=== PATIENT | male | born 1975 | race Caucasian/White ===

== ENCOUNTER 2016-08-09 11:44 | Emergency (ER) | payer MEDICARE, MEDICAID ==
--- NOTE | 2016-08-09 13:26 | EDM.PDOC ---
ED HPI GENERAL MEDICAL PROBLEM - General Chief Complaint: General Stated Complaint: DIZZY Time Seen by Provider: 08/09/16 13:07 Source of Information: Reports: Patient History Limitations: Reports: No Limitations - History of Present Illness INITIAL COMMENTS - FREE TEXT/NARRATIVE: 40 yo male presents to ER fro dizziness. This AM he woke feeling normal. Took his medications and Aleve. While showering before work he had a brief dizziness episode. While he was at work he became dizzy. He has been having low blood pressure and his BP medication was decreased by half less then 1 month ago per pt. He feels fine while laying in bed but dizzy when he sits up. c/o joint pain. Denies headache, nausea, vomitting or general ill feeling. He has been eating and drinking fine. Denies diarrhea, black or bloody stools, dysuria or constipation. Pt playing on phone while laying on bed appears comfortable Generalized Pain Score (Numeric/FACES): 8 - Related Data Allergies Allergy/AdvReac Type Severity Reaction Status Date / Time No Known Allergies Allergy Verified 08/09/16 12:48 Home Meds: Home Meds Eszopiclone [Lunesta] 3 mg PO BEDTIME 08/08/13 [History] Gabapentin 800 mg PO BEDTIME 08/08/13 [History] Losartan [Cozaar] 50 mg PO DAILY 08/08/13 [History] Clopidogrel Bisulfate [Clopidogrel] 75 mg PO DAILY 08/21/14 [History] Spironolactone [Aldactone] 12.5 mg PO DAILY 08/21/14 [History] atorvaSTATin [Lipitor] 40 mg PO BEDTIME 08/21/14 [History] Metoprolol Succinate [Toprol XL] 100 mg PO DAILY 01/03/15 [History] Acetaminophen [Tylenol] 650 mg PO Q6H PRN #100 cup 01/29/15 [Rx] Magnesium Hydroxide [Milk of Magnesia] 30 ml PO DAILY PRN #2 ml 01/29/15 [Rx] Calcium Carb/Vitamin D3/Vit K1 [Calcium + Vit D & K Chew] 1 tab PO BID 04/05/15 [History] Vitamin B Complex/Folic Acid [Sm Vitamin B Complex Tablet] 1 tab PO DAILY [History] Iron,Carbonyl/Ascorbic Acid [Iron 100-Vitamin C Tablet] 1 each PO BID 10/25/15 [ History] Pantoprazole [ProTONIX] 40 mg PO BIDAC #60 tab.cr 01/02/16 [Rx] Cyanocobalamin (Vitamin B-12) [Vitamin B-12] 1,000 mcg PO DAILY 08/09/16 [ History] Sacubitril/Valsartan [Entresto 49 mg-51 mg Tablet] 1 tab PO BID 08/09/16 [ History] Past Medical History HEENT History: Reports: Impaired Vision Cardiovascular History: Reports: Automatic Implantable Cardioverter Defibrillators, Hypertension, [place] Other Cardiovascular History: has defibrilator Respiratory History: Reports: Sleep Apnea Gastrointestinal History: Reports: Other (See Below) Other Gastrointestinal History: stomache ulcer Musculoskeletal History: Reports: Arthritis, Fracture, Other (See Below) Other Musculoskeletal History: right knee pain, right knee fracture, right ankle fracture, wrist fracture Neurological History: Reports: Concussion, Migraines, Other (See Below) Other Neuro History: brain encephlolitis Psychiatric History: Reports: Depression Endocrine/Metabolic History: Reports: Obesity/BMI 30+ Hematologic History: Reports: Other (See Below) Other Hematologic History: essential thrombocytopenia Dermatologic History: Reports: Psoriasis Other Dermatologic History: psoriatic arthritis - Infectious Disease History Infectious Disease History: Reports: Chicken Pox - Past Surgical History Cardiovascular Surgical History: Reports: Coronary Artery Stent Respiratory Surgical History: Reports: Tracheostomy, Other (See Below) GI Surgical History: Reports: Bariatric Procedure, Cholecystectomy, Colonoscopy Musculoskeletal Surgical History: Reports: Knee Replacement, Other (See Below) Social & Family History - Tobacco Use Smoking Status *Q: Current Every Day Smoker Years of Tobacco use: 35 Packs/Tins Daily: 1 Used Tobacco, but Quit: No Month Tobacco Last Used: March Second Hand Smoke Exposure: Yes - Caffeine Use Caffeine Use: Reports: Coffee, Soda Caffeine Use Comment: 1 cup coffee per day, one soda every 3 days - Alcohol Use Days Per Week of Alcohol Use: 1 Number of Drinks Per Day: 1 Total Drinks Per Week: 1 - Recreational Drug Use Recreational Drug Use: No Drug Use in Last 12 Months: No ED ROS GENERAL - Review of Systems Review Of Systems: See Below Constitutional: Denies: Fever, Chills, Fatigue HEENT: Denies: Rhinitis, Sinus Problem, Throat Pain Respiratory: Denies: Shortness of Breath, Wheezing Cardiovascular: Denies: Chest Pain GI/Abdominal: Denies: Abdominal Pain, Black Stool, Bloody Stool, Diarrhea, Nausea, Vomiting Musculoskeletal: Reports: Joint Pain Skin: Denies: Rash Neurological: Reports: Dizziness. Denies: Headache ED EXAM, GENERAL - Physical Exam Exam: See Below Exam Limited By: No Limitations General Appearance: Alert, WD/WN, No Apparent Distress Eye Exam: Bilateral Eye: PERRL Ears: Normal External Exam Head: Atraumatic, Normocephalic Neck: Normal Inspection, Supple, Non-Tender, Full Range of Motion. No: Lymphadenopathy (R), Lymphadenopathy (L) Respiratory/Chest: No Respiratory Distress, Lungs Clear, Normal Breath Sounds. No: Crackles, Rhonchi, Wheezing Cardiovascular: Regular Rate, Rhythm GI/Abdominal: Normal Bowel Sounds, Soft, Non-Tender, No Organomegaly Back Exam: Normal Inspection, Full Range of Motion. No: CVA Tenderness (R), CVA Tenderness (L) Extremities: Normal Inspection, Normal Range of Motion, Non-Tender, No Pedal Edema Neurological: Alert, Oriented, CN II-XII Intact, Normal Cognition Psychiatric: Normal Affect, Normal Mood Skin Exam: Warm, Dry, Intact, No Rash Lymphatic: No Adenopathy Course - Vital Signs Last Recorded V/S: Last Vital Signs Temp 36.1 C 08/09/16 13:06 Pulse 84 08/09/16 16:06 Resp 16 08/09/16 16:06 BP 120/69 08/09/16 16:06 Pulse Ox 98 08/09/16 16:06 - Orders/Labs/Meds Labs: Laboratory Tests 08/09/16 08/09/16 08/09/16 Range/Units 13:32 13:32 15:21 WBC 23.4 H (4.5-11.0) K/uL RBC 4.78 (4.30-5.90) M/uL Hgb 13.1 D (12.0-15.0) g/dL Hct 40.2 (40.0-54.0) % MCV 84 (80-98) fL MCH 27 (27-31) pg MCHC 33 (32-36) % Plt Count 365 (150-400) K/uL Neut % (Auto) 90 H (36-66) % Lymph % (Auto) 4 L (24-44) % Lynn % (Auto) 6 (2-6) % Eos % (Auto) 0 L (2-4) % Baso % (Auto) 0 (0-1) % Sodium 142 (140-148) mmol/L Potassium 4.4 (3.6-5.2) mmol/L Chloride 105 (100-108) mmol/L Carbon Dioxide 25 (21-32) mmol/L Anion Gap 12.5 (5.0-14.0) mmol/L BUN 26 H D (7-18) mg/dL Creatinine 1.1 D (0.8-1.3) mg/dL Est Cr Clr Drug Dosing 84.64 mL/min Estimated GFR (MDRD) > 60 (>60) Glucose 242 H (74-106) mg/dL Calcium 8.5 (8.5-10.1) mg/dL Total Bilirubin 1.1 H (0.2-1.0) mg/dL AST 16 D (15-37) U/L ALT 12 (12-78) U/L Alkaline Phosphatase 85 (46-116) U/L Total Protein 8.0 (6.4-8.2) g/dL Albumin 3.5 (3.4-5.0) g/dL Globulin 4.5 H (2.3-3.5) g/dL Albumin/Globulin Ratio 0.8 L (1.2-2.2) Urine Color Yellow Urine Appearance Clear Urine pH 5.0 (4.5-8.0) Ur Specific Boring 1.020 (1.008-1.030) Urine Protein Negative (NEGATIVE) mg/dL Urine Glucose (UA) 250 H (NEGATIVE) mg/dL Urine Ketones Negative (NEGATIVE) mg/dL Urine Occult Blood Moderate (NEGATIVE) Urine Nitrite Negative (NEGAITVE) Urine Bilirubin Negative (NEGATIVE) Urine Urobilinogen 1 (NORMAL) mg/dL Ur Leukocyte Esterase Negative (NEGATIVE) Urine RBC 40-50 H (0-5) Urine WBC 0-5 (0-5) Ur Epithelial Cells Rare Amorphous Sediment Few Urine Bacteria Moderate Urine Mucus Few Meds: Medications Discontinued Medications Generic Name Dose Route Start Last Admin Trade Name Freq PRN Reason Stop Dose Admin Sodium Chloride 1,000 mls @ 999 mls/hr 08/09/16 13:30 08/09/16 13:50 Normal Saline IV 999 mls/hr ASDIRECTED [facility] Administration Sodium Chloride 1,000 mls @ 999 mls/hr 08/09/16 15:00 08/09/16 15:01 Normal Saline IV 999 mls/hr ASDIRECTED [facility] Administration - Re-Assessments/Exams Free Text/Narrative Re-Assessment/Exam: 08/09/16 15:41 pt feeling much better after fluids. Dizziness resolved. UA glucose and moderate bacteria with RBCs but no WBCs in urine. Pt states that prior to gastric bipass he was diabetic. Today he has blood glucose of 242 that with glucose in urine he will need evaluation for DM II. pt understands this and will make appt for Thursday for reevaluation of UTI and elevated WBC plus DM II evaluation. I would also like him to hold his metoprolol until he is evaluated by his primary care doctor and monitor his blood pressure daily bringing these readings to PCP 08/09/16 15:46 08/09/16 17:28 pt ambulated without dizziness stated that he was ready to go home Departure - Departure Time of Disposition: 15:47 Disposition: Home, Self-Care 01 Condition: good Clinical Impression: Dizziness Hypotension Qualifiers: Hypotension type: unspecified hypotension type Qualified Code(s): I95.9 - Hypotension, unspecified UTI (urinary tract infection) Qualifiers: Urinary tract infection type: acute cystitis Hematuria presence: with hematuria Qualified Code(s): N30.01 - Acute cystitis with hematuria - Discharge Information Instructions: Hypotension, [id number], Urinary Tract Infection, Adult, Dizziness, [id number] Referrals: Kurtis Ya MD [Primary Care Provider] - Forms: ED Department Discharge Additional Instructions: You need to follow-up with your primary care provider Thursday Bactrim DS twice daily for 3 days for urinary tract infection You had glucose in your urine and your blood glucose today was 242 you will need to be evaluated by your primary care provider regarding return of your Diabetes Your white blood cells were also elevated today. please have your primary care doctor re-evaluate this increase increase fluid intake with goal of 1.5 liters per day
[2016-08-09] MEDS ORDERED: Sodium Chloride 0.9% 1,000 ML IV SCH ×2 (13:30→15:00)
[2016-08-09 16:07] VITALS: BP 120/69
== END 2016-08-09 16:31 | disposition home or self-care (01) ==
LOC: JP.ED 11:44
DX: R42 Dizziness and giddiness (principal); I95.9 Hypotension, unspecified; N30.01 Acute cystitis with hematuria; I10 Essential (primary) hypertension; I25.2 Old myocardial infarction; F32.9 Major depressive disorder, single episode, unspecified; F17.210 Nicotine dependence, cigarettes, uncomplicated; E66.9 Obesity, unspecified; Z68.28 Body mass index [BMI] 28.0-28.9, adult; Z95.810 Presence of automatic (implantable) cardiac defibrillator; Z95.5 Presence of coronary angioplasty implant and graft; Z90.49 Acquired absence of other specified parts of digestive tract; Z98.84 Bariatric surgery status; Z96.659 Presence of unspecified artificial knee joint; Z79.02 Long term (current) use of antithrombotics/antiplatelets; Z79.899 Other long term (current) drug therapy
CPT/HCPCS: 36415; 80053; 81001; 85025; 96360; 96361; 99284; J7040; 99283

== ENCOUNTER 2016-11-04 23:10 | Emergency (ER) | payer MEDICARE, MEDICAID ==
[2016-11-04 23:45] VITALS: BP 131/52
--- NOTE | 2016-11-05 00:26 | EDM.PDOC ---
ED HPI GENERAL MEDICAL PROBLEM - General Chief Complaint: Lower Extremity Injury/Pain Stated Complaint: L LEG PAIN Time Seen by Provider: 11/04/16 23:12 Source of Information: Reports: Patient History Limitations: Reports: No Limitations - History of Present Illness INITIAL COMMENTS - FREE TEXT/NARRATIVE: This gentleman had a total knee replacement about 2 weeks ago. Tonight he notices some red areas to his left lower leg. He's worried about a DVT. He denies any increasing pain. - Related Data Allergies Allergy/AdvReac Type Severity Reaction Status Date / Time No Known Allergies Allergy Verified 11/04/16 23:54 Home Meds: Home Meds Eszopiclone [Lunesta] 3 mg PO BEDTIME 08/08/13 [History] Gabapentin 800 mg PO BEDTIME 08/08/13 [History] Losartan [Cozaar] 50 mg PO DAILY 08/08/13 [History] Clopidogrel Bisulfate [Clopidogrel] 75 mg PO DAILY 08/21/14 [History] Spironolactone [Aldactone] 12.5 mg PO DAILY 08/21/14 [History] atorvaSTATin [Lipitor] 40 mg PO BEDTIME 08/21/14 [History] Metoprolol Succinate [Toprol XL] 100 mg PO DAILY 01/03/15 [History] Calcium Carb/Vitamin D3/Vit K1 [Calcium + Vit D & K Chew] 1 tab PO BID 04/05/15 [History] Vitamin B Complex/Folic Acid [Sm Vitamin B Complex Tablet] 1 tab PO DAILY [History] Iron,Carbonyl/Ascorbic Acid [Iron 100-Vitamin C Tablet] 1 each PO BID 10/25/15 [ History] Cyanocobalamin (Vitamin B-12) [Vitamin B-12] 1,000 mcg PO DAILY 08/09/16 [ History] Sacubitril/Valsartan [Entresto 49 mg-51 mg Tablet] 1 tab PO BID 08/09/16 [ History] Pantoprazole [ProTONIX] 40 mg PO DAILY 11/05/16 [History] oxyCODONE 5 - 10 mg PO Q4H PRN 11/05/16 [History] Past Medical History HEENT History: Reports: Impaired Vision Cardiovascular History: Reports: Automatic Implantable Cardioverter Defibrillators, Hypertension, [place] Other Cardiovascular History: has defibrilator Respiratory History: Reports: Sleep Apnea Gastrointestinal History: Reports: GI Bleed, Other (See Below) Other Gastrointestinal History: stomache ulcer Musculoskeletal History: Reports: Arthritis, Fracture, Other (See Below) Other Musculoskeletal History: right knee pain, right knee fracture, right ankle fracture, wrist fracture Neurological History: Reports: Concussion, Migraines, Other (See Below) Other Neuro History: brain encephalitis Psychiatric History: Reports: Depression Endocrine/Metabolic History: Reports: Obesity/BMI 30+ Hematologic History: Reports: Other (See Below) Other Hematologic History: essential thrombocytopenia Dermatologic History: Reports: Psoriasis Other Dermatologic History: psoriatic arthritis - Infectious Disease History Infectious Disease History: Reports: Chicken Pox - Past Surgical History Cardiovascular Surgical History: Reports: Coronary Artery Stent Respiratory Surgical History: Reports: Tracheostomy, Other (See Below) GI Surgical History: Reports: Bariatric Procedure, Cholecystectomy, Colonoscopy Musculoskeletal Surgical History: Reports: Knee Replacement, Other (See Below) Other Musculoskeletal Surgeries/Procedures:: right knee replacement last year, left knee replacement 10/24 Social & Family History - Tobacco Use Smoking Status *Q: Current Every Day Smoker Years of Tobacco use: 20 Packs/Tins Daily: 1 Used Tobacco, but Quit: No Month Tobacco Last Used: March Second Hand Smoke Exposure: Yes - Caffeine Use Caffeine Use: Reports: Coffee Caffeine Use Comment: 1 cup coffee per day, one soda every 3 days - Alcohol Use Days Per Week of Alcohol Use: 1 Number of Drinks Per Day: 1 Total Drinks Per Week: 1 - Recreational Drug Use Recreational Drug Use: No Drug Use in Last 12 Months: No Review of Systems - Review of Systems Review Of Systems: ROS reveals no pertinent complaints other than HPI. ED EXAM, GENERAL - Physical Exam Exam: See Below Exam Limited By: No Limitations General Appearance: Alert, No Apparent Distress, Thin Extremities: Other (There seems to be a moderate amount of muscle wasting to the legs. There is a midline scar to the left knee from recent surgery. There is a moderate amount of swelling and tenderness to the left knee which he says is unchanged there is no erythema or increased warmth to the left knee. There is one area to the lateral side of the knee inferior to the patella that seems moderately tender but is not fluctuant. There is a slightly reddish area approximately 4 cm in diameter over the distal third of the tibia and a similar area to the posterior calf at about the same level those or not warm and the redness does not steph. There is a small amount of icteric looking skin in that area which looks like the remains of some old blood which I assume came from the knee. The red area indicates that he may have had a little bit of acute blood loss over the past few days. The muscle tissues of the lower leg are completely flaccid and nontender. So no evidence of a DVT or superficial thrombophlebitis) Course - Vital Signs Last Recorded V/S: Last Vital Signs Temp 36.6 C 11/05/16 00:05 Pulse 93 11/05/16 00:05 Resp 16 11/05/16 00:05 BP 131/52 L 11/05/16 00:05 Pulse Ox 97 11/05/16 00:05 Departure - Departure Time of Disposition: :23 Disposition: Home, Self-Care 01 Condition: Good Clinical Impression: Discoloration of skin of lower leg - Discharge Information Referrals: Kurtis Ya MD [Primary Care Provider] - Forms: ED Department Discharge Additional Instructions: There is no evidence of a deep venous thrombosis in your lower leg. The red is discoloration as well as the much larger area of yellow discoloration is most likely from a little bit of bleeding into the tissues in your knee which has worked its way downward due to gravity. This will go away gradually without any kind of treatment. If you start to develop a lot of swelling, pain and redness in the lower leg and that would more likely be a DVT and you should be evaluated right away. At this point you don't need to do anything special just go about your business and remain as active as your doctor recommends.
== END 2016-11-05 00:40 | disposition home or self-care (01) ==
LOC: JP.ED 23:10
DX: L98.9 Disorder of the skin and subcutaneous tissue, unspecified (principal); L53.9 Erythematous condition, unspecified; I10 Essential (primary) hypertension; I25.2 Old myocardial infarction; M19.90 Unspecified osteoarthritis, unspecified site; F32.9 Major depressive disorder, single episode, unspecified; F17.210 Nicotine dependence, cigarettes, uncomplicated; E66.9 Obesity, unspecified; Z68.27 Body mass index [BMI] 27.0-27.9, adult; Z95.5 Presence of coronary angioplasty implant and graft; Z98.84 Bariatric surgery status; Z90.49 Acquired absence of other specified parts of digestive tract; Z96.653 Presence of artificial knee joint, bilateral; Z79.02 Long term (current) use of antithrombotics/antiplatelets; Z79.899 Other long term (current) drug therapy
CPT/HCPCS: 99283; 99284

== ENCOUNTER 2016-11-13 03:43 | Emergency (ER) | payer MEDICARE, MEDICAID ==
[2016-11-13 03:48] VITALS: BP 108/66
[2016-11-13] MEDS ORDERED: HYDROmorphone 1 MG/ML Syringe IM ONE (04:15)
--- NOTE | 2016-11-13 04:22 | EDM.PDOC ---
ED HPI GENERAL MEDICAL PROBLEM - General Chief Complaint: Lower Extremity Injury/Pain Stated Complaint: MEDICAL [facility]IA [facility] Time Seen by Provider: 11/13/16 04:10 Source of Information: Reports: Patient, EMS, Old Records History Limitations: Reports: No Limitations - History of Present Illness INITIAL COMMENTS - FREE TEXT/NARRATIVE: 41 yo male arrives in the ER tonight via EMS after developing severe pain in the left knee on his way back from the bathroom tonight. 10/24/16 had a total knee replacement on that leg in [place], [place]. Uses a rodriguez to get around lately , not able to flex and extend like he was before the pain began tonight. Is not sure if his knee is any more swollen than usual at this time. Took oxycodone 5 mg at 0330h tonight without relief of his pain. Does not return to [place] for follow up for a few more months. Onset: Today Onset Date: 11/13/16 Onset Time: 03:00 Duration: Minutes:, Constant Location: Reports: Lower Extremity, Left Quality: Reports: Ache Severity: Severe Improves with: Reports: Rest Worsens with: Reports: Movement Context: Reports: Other (Recent knee replacement) Associated Symptoms: Reports: No Other Symptoms Treatments VETERINARY PATHOLOGIST: Reports: Other Medication(s) (oxycodone 5 mg) Left Knee Pain Score (Numeric/FACES): 9 - Related Data Allergies Allergy/AdvReac Type Severity Reaction Status Date / Time No Known Allergies Allergy Verified 11/04/16 23:54 Home Meds: Home Meds Eszopiclone [Lunesta] 3 mg PO BEDTIME 08/08/13 [History] Gabapentin 800 mg PO BEDTIME 08/08/13 [History] Losartan [Cozaar] 50 mg PO DAILY 08/08/13 [History] Clopidogrel Bisulfate [Clopidogrel] 75 mg PO DAILY 08/21/14 [History] Spironolactone [Aldactone] 12.5 mg PO DAILY 08/21/14 [History] atorvaSTATin [Lipitor] 40 mg PO BEDTIME 08/21/14 [History] Metoprolol Succinate [Toprol XL] 100 mg PO DAILY 01/03/15 [History] Calcium Carb/Vitamin D3/Vit K1 [Calcium + Vit D & K Chew] 1 tab PO BID 04/05/15 [History] Vitamin B Complex/Folic Acid [Sm Vitamin B Complex Tablet] 1 tab PO DAILY [History] Iron,Carbonyl/Ascorbic Acid [Iron 100-Vitamin C Tablet] 1 each PO BID 10/25/15 [ History] Cyanocobalamin (Vitamin B-12) [Vitamin B-12] 1,000 mcg PO DAILY 08/09/16 [ History] Pantoprazole [ProTONIX] 40 mg PO DAILY 11/05/16 [History] oxyCODONE 5 - 10 mg PO Q4H PRN 11/05/16 [History] Sacubitril/Valsartan [Entresto 49 mg-51 mg Tablet] 2 tab PO BID 11/13/16 [ History] Ustekinumab [Stelara] 1 ml SQ ASDIRECTED 11/13/16 [History] Past Medical History HEENT History: Reports: Impaired Vision Cardiovascular History: Reports: Automatic Implantable Cardioverter Defibrillators, Hypertension, [place] Other Cardiovascular History: has defibrilator Respiratory History: Reports: Sleep Apnea Gastrointestinal History: Reports: GI Bleed, Other (See Below) Other Gastrointestinal History: stomache ulcer Musculoskeletal History: Reports: Arthritis, Fracture, Other (See Below) Other Musculoskeletal History: right knee pain, right knee fracture, right ankle fracture, wrist fracture Neurological History: Reports: Concussion, Migraines, Other (See Below) Other Neuro History: brain encephalitis Psychiatric History: Reports: Depression Endocrine/Metabolic History: Reports: Obesity/BMI 30+ Hematologic History: Reports: Anemia, B12 Deficiency Other Hematologic History: essential thrombocytopenia Dermatologic History: Reports: Psoriasis Other Dermatologic History: psoriatic arthritis - Infectious Disease History Infectious Disease History: Reports: Chicken Pox - Past Surgical History Cardiovascular Surgical History: Reports: Coronary Artery Stent Respiratory Surgical History: Reports: Tracheostomy, Other (See Below) GI Surgical History: Reports: Bariatric Procedure, Cholecystectomy, Colonoscopy Musculoskeletal Surgical History: Reports: Knee Replacement, Other (See Below) Other Musculoskeletal Surgeries/Procedures:: right knee replacement last year, left knee replacement 10/24 Social & Family History - Tobacco Use Smoking Status *Q: Current Every Day Smoker Years of Tobacco use: 25 Packs/Tins Daily: 1 Used Tobacco, but Quit: No Month Tobacco Last Used: March Second Hand Smoke Exposure: Yes - Caffeine Use Caffeine Use: Reports: Coffee Caffeine Use Comment: 1 cup coffee per day, one soda every 3 days - Alcohol Use Days Per Week of Alcohol Use: 1 Number of Drinks Per Day: 1 Total Drinks Per Week: 1 - Recreational Drug Use Recreational Drug Use: No Drug Use in Last 12 Months: No Review of Systems - Review of Systems Review Of Systems: See Below Constitutional: Reports: No Symptoms Respiratory: Reports: No Symptoms Cardiovascular: Reports: No Symptoms GI/Abdominal: Reports: No Symptoms Genitourinary: Reports: No Symptoms Musculoskeletal: Reports: Joint Pain (L knee) Skin: Reports: No Symptoms Neurological: Reports: No Symptoms Psychiatric: Reports: No Symptoms ED EXAM, GENERAL - Physical Exam Exam: See Below Exam Limited By: No Limitations General Appearance: Alert, WD/WN, No Apparent Distress Extremities: Joint Swelling (L knee is swollen). No: Redness Neurological: Alert, Oriented, CN II-XII Intact, Normal Cognition, No Motor/ Sensory Deficits Psychiatric: Normal Affect, Normal Mood Skin Exam: Warm, Dry, Intact, Normal Color, Increased Warmth (L knee. ), Other ( Healing surgical scar present. ). No: Erythema Lymphatic: No Adenopathy Course - Vital Signs Last Recorded V/S: Last Vital Signs Temp 36.2 C 11/13/16 03:44 Pulse 94 11/13/16 03:44 Resp 16 11/13/16 03:44 BP 108/66 11/13/16 03:44 Pulse Ox - Orders/Labs/Meds Orders: Active Orders 24 hr Category Date Time Status Knee 3V Lt [CR] Stat Exams 11/13/16 04:15 Ordered CBC W/O DIFF,HEMOGRAM [HEME] Stat Lab 11/13/16 04:16 Ordered HYDROmorphone [Dilaudid] Med 11/13/16 04:15 Once 1 mg IM ONETIME ONE - Radiology Interpretation Free Text/Narrative:: L knee X-ray-no acute processes identified. Departure - Departure Time of Disposition: 05:10 Disposition: Home, Self-Care 01 Condition: Fair Clinical Impression: Knee pain, left Qualifiers: Chronicity: acute Qualified Code(s): M25.562 - Pain in left knee - Discharge Information Referrals: PCP,None [Primary Care Provider] - - My Orders Last 24 Hours: My Active Orders 11/13/16 04:15 Knee 3V Lt [CR] Stat HYDROmorphone [Dilaudid] 1 mg IM ONETIME ONE 11/13/16 04:16 CBC W/O DIFF,HEMOGRAM [HEME] Stat - Assessment/Plan Last 24 Hours: My Active Orders 11/13/16 04:15 Knee 3V Lt [CR] Stat HYDROmorphone [Dilaudid] 1 mg IM ONETIME ONE 11/13/16 04:16 CBC W/O DIFF,HEMOGRAM [HEME] Stat
--- NOTE | 2016-11-13 08:54 | CR ---
Knee 3V Lt HISTORY: Pain COMPARISON: None FINDINGS: Moderate joint effusion. No acute fracture or bony destructive process. Total knee arthropl asty change with excellent alignment. Impression: Moderate effusion.
== END 2016-11-13 06:03 | disposition home or self-care (01) ==
LOC: JP.ED 03:43
DX: M25.562 Pain in left knee (principal); I10 Essential (primary) hypertension; I25.2 Old myocardial infarction; M19.90 Unspecified osteoarthritis, unspecified site; F17.210 Nicotine dependence, cigarettes, uncomplicated; E66.9 Obesity, unspecified; Z68.27 Body mass index [BMI] 27.0-27.9, adult; Z95.810 Presence of automatic (implantable) cardiac defibrillator; Z95.5 Presence of coronary angioplasty implant and graft; Z98.84 Bariatric surgery status; Z90.49 Acquired absence of other specified parts of digestive tract; Z96.651 Presence of right artificial knee joint; Z98.890 Other specified postprocedural states; Z79.02 Long term (current) use of antithrombotics/antiplatelets; Z79.899 Other long term (current) drug therapy
CPT/HCPCS: 36415; 73562; 85027; 96372; 99284; J1170; 99283

== ENCOUNTER 2017-03-11 21:41 | Emergency (ER) | payer MEDICARE, MEDICAID ==
[2017-03-11 21:56] VITALS: BP 107/62
[2017-03-11] MEDS ORDERED: Acetaminophen 500 MG Tab PO ONE (22:23)
--- NOTE | 2017-03-11 22:25 | EDM.PDOC ---
ED HPI GENERAL MEDICAL PROBLEM - General Chief Complaint: Lower Extremity Injury/Pain Stated Complaint: RIGHT KNEE PAIN Time Seen by Provider: 03/11/17 22:23 Source of Information: Reports: Patient History Limitations: Reports: No Limitations - History of Present Illness INITIAL COMMENTS - FREE TEXT/NARRATIVE: This patient came in complaining of right knee pain. He's had bilateral total knee replacements. He denied any kind of trauma to the right knee. He thinks the pain is just caused by the very cold weather. He points to the medial side of the right knee. He hasn't taken anything for the pain he told me that he thought naproxen would help but that he couldn't take Aleve since she's had ulcers he wasn't aware they're both the same medication right knee Pain Score (Numeric/FACES): 10 - Related Data Allergies Allergy/AdvReac Type Severity Reaction Status Date / Time No Known Allergies Allergy Verified 03/11/17 21:54 Home Meds: Home Meds Eszopiclone [Lunesta] 3 mg PO BEDTIME 08/08/13 [History] Gabapentin 800 mg PO BEDTIME 08/08/13 [History] Losartan [Cozaar] 50 mg PO DAILY 08/08/13 [History] Clopidogrel Bisulfate [Clopidogrel] 75 mg PO DAILY 08/21/14 [History] Spironolactone [Aldactone] 12.5 mg PO DAILY 08/21/14 [History] atorvaSTATin [Lipitor] 40 mg PO BEDTIME 08/21/14 [History] Metoprolol Succinate [Toprol XL] 100 mg PO DAILY 01/03/15 [History] Calcium Carb/Vitamin D3/Vit K1 [Calcium + Vit D & K Chew] 1 tab PO BID 04/05/15 [History] Vitamin B Complex/Folic Acid [Sm Vitamin B Complex Tablet] 1 tab PO DAILY [History] Iron,Carbonyl/Ascorbic Acid [Iron 100-Vitamin C Tablet] 1 each PO DAILY [History] Cyanocobalamin (Vitamin B-12) [Vitamin B-12] 1,000 mcg PO DAILY 08/09/16 [ History] Pantoprazole [ProTONIX] 40 mg PO DAILY 11/05/16 [History] Sacubitril/Valsartan [Entresto 49 mg-51 mg Tablet] 2 tab PO BID 11/13/16 [ History] Past Medical History HEENT History: Reports: Impaired Vision Cardiovascular History: Reports: Automatic Implantable Cardioverter Defibrillators, High Cholesterol, Hypertension, [place], Stents Other Cardiovascular History: has defibrilator Respiratory History: Reports: Sleep Apnea, Other (See Below) Other Respiratory History: has not had issues with sleep apnea since gastric bypass surgery Gastrointestinal History: Reports: GI Bleed, Other (See Below) Other Gastrointestinal History: stomache ulcer Musculoskeletal History: Reports: Arthritis, Fracture, Other (See Below) Other Musculoskeletal History: right knee pain, right knee fracture, right ankle fracture, wrist fracture Neurological History: Reports: Concussion, Migraines, Other (See Below) Other Neuro History: brain encephalitis Psychiatric History: Reports: Depression, Suicide Attempt Endocrine/Metabolic History: Reports: Obesity/BMI 30+ Hematologic History: Reports: Anemia, B12 Deficiency Other Hematologic History: essential thrombocythemia Dermatologic History: Reports: Psoriasis Other Dermatologic History: psoriatic arthritis - Infectious Disease History Infectious Disease History: Reports: Other (See Below) Other Infectious Disease History: patient cannot remember - Past Surgical History Cardiovascular Surgical History: Reports: Coronary Artery Stent Respiratory Surgical History: Reports: Tracheostomy GI Surgical History: Reports: Bariatric Procedure, Cholecystectomy, Colonoscopy Musculoskeletal Surgical History: Reports: Knee Replacement, Other (See Below) Other Musculoskeletal Surgeries/Procedures:: right knee replacement 2016, left knee replacement 10/24/16 Social & Family History - Tobacco Use Smoking Status *Q: Current Every Day Smoker Years of Tobacco use: 30 Packs/Tins Daily: 1 Used Tobacco, but Quit: No Month Tobacco Last Used: March Second Hand Smoke Exposure: Yes - Caffeine Use Caffeine Use: Reports: Coffee Caffeine Use Comment: 1 cup coffee per day, one soda every 3 days - Alcohol Use Days Per Week of Alcohol Use: 1 Number of Drinks Per Day: 1 Total Drinks Per Week: 1 - Recreational Drug Use Recreational Drug Use: No Drug Use in Last 12 Months: No Review of Systems - Review of Systems Review Of Systems: ROS reveals no pertinent complaints other than HPI. ED EXAM, GENERAL - Physical Exam Exam: See Below Exam Limited By: No Limitations General Appearance: No Apparent Distress Extremities: Other (There are well-healed midline scars to both knees. The right knee has good active and passive range of motion. There is some point tenderness to the medial side of the right knee. It's at the area that would normally be the joint line. There is no swelling. There is nothing to suggest a DVT) Course - Vital Signs Last Recorded V/S: Last Vital Signs Temp 35.2 C 03/11/17 22:06 Pulse 88 03/11/17 22:06 Resp 16 03/11/17 22:06 BP 107/62 03/11/17 22:06 Pulse Ox 96 03/11/17 22:06 - Orders/Labs/Meds Meds: Medications Discontinued Medications Generic Name Dose Route Start Last Admin Trade Name Yecenia PRN Reason Stop Dose Admin Acetaminophen 1,000 mg 03/11/17 22:23 03/11/17 22:27 Tylenol Extra Strength PO 03/11/17 22:24 1,000 mg ONETIME ONE Administration Departure - Departure Time of Disposition: 22:23 Disposition: Home, Self-Care 01 Condition: Fair Clinical Impression: Right medial knee pain - Discharge Information Instructions: Knee Pain Referrals: Kurtis Ya MD [Primary Care Provider] - Forms: ED Department Discharge Additional Instructions: Take Tylenol or acetaminophen for pain. Follow package instructions regarding maximum dosage. If you're not better in a few days then follow-up with your primary care provider. You may need to see the orthopedic surgeon. Recommend you elevate your knee and apply ice off and on for the next day or so. Return to the ER at any time if needed
== END 2017-03-11 22:34 | disposition home or self-care (01) ==
LOC: JP.ED 21:41
DX: M25.561 Pain in right knee (principal); E78.00 Pure hypercholesterolemia, unspecified; I10 Essential (primary) hypertension; E66.9 Obesity, unspecified; F17.210 Nicotine dependence, cigarettes, uncomplicated; Z79.899 Other long term (current) drug therapy
CPT/HCPCS: 99283; A9270; 99282

== ENCOUNTER 2018-09-03 23:53 | Emergency (ER) | payer MEDICARE, MEDICAID ==
[2018-09-04 00:08] VITALS: BP 145/85
--- NOTE | 2018-09-04 00:21 | EDM.PDOC ---
ED HPI GENERAL MEDICAL PROBLEM - General Chief Complaint: Upper Extremity Injury/Pain Stated Complaint: LEFT ARM NUMBNESS, HEART ATTACK? Time Seen by Provider: 09/04/18 00:20 Source of Information: Reports: Patient, Old Records, RN History Limitations: Reports: No Limitations - History of Present Illness INITIAL COMMENTS - FREE TEXT/NARRATIVE: 42 yo male had onset about 3 hrs prior to arrival of L arm pain. Pain has worsened since onset. Is worried this is his heart. Has no nausea, diaphoresis or SOB. Recalls no overuse or injury to this area. Has not taken anything for pain. Does have a heart hx. Onset: Gradual Onset Date: 09/03/18 Duration: Hour(s): (3), Getting Worse Location: Reports: Upper Extremity, Left Quality: Reports: Ache Severity: Mild Improves with: Reports: Rest Worsens with: Reports: Movement Context: Reports: Other (unknown) Associated Symptoms: Reports: No Other Symptoms Treatments PA[employer] HELPER: Reports: Other (see below) (none) Left Upper Arm Pain Score (Numeric/FACES): 7 - Related Data Allergies Allergy/AdvReac Type Severity Reaction Status Date / Time No Known Allergies Allergy Verified 03/11/17 21:54 Home Meds: Home Meds Gabapentin 800 mg PO BEDTIME 08/08/13 [History] Losartan [Cozaar] 50 mg PO DAILY 08/08/13 [History] Clopidogrel Bisulfate [Clopidogrel] 75 mg PO DAILY 08/21/14 [History] Spironolactone [Aldactone] 12.5 mg PO DAILY 08/21/14 [History] atorvaSTATin [Lipitor] 40 mg PO BEDTIME 08/21/14 [History] Metoprolol Succinate [Toprol XL] 100 mg PO DAILY 01/03/15 [History] Calcium Carb/Vitamin D3/Vit K1 [Calcium + Vit D & K Chew] 1 tab PO BID 04/05/15 [History] Vitamin B Complex/Folic Acid [Sm Vitamin B Complex Tablet] 1 tab PO DAILY [History] Iron,Carbonyl/Ascorbic Acid [Iron 100-Vitamin C Tablet] 1 each PO DAILY [History] Cyanocobalamin (Vitamin B-12) [Vitamin B-12] 1,000 mcg PO DAILY 08/09/16 [ History] Pantoprazole [ProTONIX] 40 mg PO DAILY 11/05/16 [History] Sacubitril/Valsartan [Entresto 49 mg-51 mg Tablet] 2 tab PO BID 11/13/16 [ History] Past Medical History HEENT History: Reports: Impaired Vision Cardiovascular History: Reports: Automatic Implantable Cardioverter Defibrillators, High Cholesterol, Hypertension, [place], Stents Other Cardiovascular History: has defibrilator Respiratory History: Reports: Sleep Apnea, Other (See Below) Other Respiratory History: has not had issues with sleep apnea since gastric bypass surgery Gastrointestinal History: Reports: GI Bleed, Other (See Below) Other Gastrointestinal History: stomache ulcer Musculoskeletal History: Reports: Arthritis, Fracture, Other (See Below) Other Musculoskeletal History: right knee pain, right knee fracture, right ankle fracture, wrist fracture Neurological History: Reports: Concussion, Migraines, Other (See Below) Other Neuro History: brain encephalitis Psychiatric History: Reports: Depression, Suicide Attempt Endocrine/Metabolic History: Reports: Obesity/BMI 30+ Hematologic History: Reports: Anemia, B12 Deficiency Other Hematologic History: essential thrombocythemia Dermatologic History: Reports: Psoriasis Other Dermatologic History: psoriatic arthritis - Infectious Disease History Infectious Disease History: Reports: Other (See Below) Other Infectious Disease History: patient cannot remember - Past Surgical History Cardiovascular Surgical History: Reports: Coronary Artery Stent Respiratory Surgical History: Reports: Tracheostomy GI Surgical History: Reports: Bariatric Procedure, Cholecystectomy, Colonoscopy Musculoskeletal Surgical History: Reports: Knee Replacement, Other (See Below) Other Musculoskeletal Surgeries/Procedures:: right knee replacement 2016, left knee replacement 10/24/16 Social & Family History - Tobacco Use Smoking Status *Q: Current Every Day Smoker Years of Tobacco use: 25 Packs/Tins Daily: 1 - Caffeine Use Caffeine Use: Reports: Coffee Caffeine Use Comment: 1 cup coffee per day, one soda every 3 days - Recreational Drug Use Recreational Drug Use: No Review of Systems - Review of Systems Review Of Systems: See Below Constitutional: Reports: No Symptoms Respiratory: Reports: No Symptoms Cardiovascular: Reports: No Symptoms GI/Abdominal: Reports: No Symptoms Musculoskeletal: Reports: Shoulder Pain (left), Arm Pain (left) Skin: Reports: No Symptoms Neurological: Reports: Tingling (minimal of L hand) ED EXAM, GENERAL - Physical Exam Exam: See Below Exam Limited By: No Limitations General Appearance: Alert, WD/WN, No Apparent Distress Nose: Normal Inspection Throat/Mouth: Normal Voice, No Airway Compromise Head: Atraumatic, Normocephalic Neck: Normal Inspection Respiratory/Chest: No Respiratory Distress, Lungs Clear, Normal Breath Sounds, No Accessory Muscle Use Cardiovascular: Regular Rate, Rhythm, No Edema Extremities: Normal Inspection, Normal Range of Motion, No Pedal Edema, Arm Pain (L biceps area is tender. Resisted arm extension, however, does not make the pain worse. No redness, no sign of phlebitis. No axillary adenopathy or tenderness. Good peripheral pulse at the L wrist. ). No: Non-Tender, Joint Swelling, Limited Range of Motion, Increased Warmth, Redness Neurological: Alert, Oriented, CN II-XII Intact, Normal Cognition, No Motor/ Sensory Deficits Psychiatric: Normal Affect, Normal Mood Skin Exam: Warm, Dry, Intact, Normal Color, No Rash EKG INTERPRETATION EKG Date: 09/04/18 Time: 00:10 Rhythm: NSR Rate (Beats/Min): 83 [place]: Normal P-Wave: Present QRS: Normal ST-T: Normal QT: Normal Comparison: No Change EKG Interpretation Comments: PVC's not present on prior EKG, otherwise unchanged. Course - Vital Signs Last Recorded V/S: Last Vital Signs Temp 35.6 C 09/04/18 00:04 Pulse 89 09/04/18 00:04 Resp 16 09/04/18 00:04 BP 145/85 H 09/04/18 00:04 Pulse Ox 92 L 09/04/18 00:04 - Orders/Labs/Meds Orders: Active Orders 24 hr Category Date Time Status EKG Documentation Completion [RC] ASDIRECTED Care 09/04/18 00:12 Active Acetaminophen/HYDROcodone [[place] 325-5 MG] Med 09/04/18 00:26 Once 1 tab PO ONETIME ONE EKG 12 Lead [EK] Routine Ther 09/04/18 00:12 Ordered Medication Orders Hydrocodone Bitart/Acetaminophen ([place] 325-5 Mg) 1 tab PO ONETIME ONE Stop: 09/04/18 00:27 Meds: Medications Generic Name Dose Route Start Last Admin Trade Name Freq PRN Reason Stop Dose Admin Hydrocodone Bitart/Acetaminophen 1 tab 09/04/18 00:26 [place] 325-5 Mg PO 09/04/18 00:27 ONETIME ONE Departure - Departure Time of Disposition: 00:40 Disposition: Home, Self-Care 01 Condition: Good Clinical Impression: Arm pain, left - Discharge Information *PRESCRIPTION DRUG MONITORING PROGRAM REVIEWED*: No *COPY OF PRESCRIPTION DRUG MONITORING REPORT IN PATIENT MAMIE: No Referrals: Kurtis Ya MD [Primary Care Provider] - Forms: ED Department Discharge Additional Instructions: Take [place] 1-2 every 4-6 hrs as needed. Recheck Thursday with your provider if symptoms persist. Return if worse. - My Orders Last 24 Hours: My Active Orders 09/04/18 00:12 EKG Documentation Completion [RC] ASDIRECTED EKG 12 Lead [EK] Routine 09/04/18 00:26 Acetaminophen/HYDROcodone [[place] 325-5 MG] 1 tab PO ONETIME ONE - Assessment/Plan Last 24 Hours: My Active Orders 09/04/18 00:12 EKG Documentation Completion [RC] ASDIRECTED EKG 12 Lead [EK] Routine 09/04/18 00:26 Acetaminophen/HYDROcodone [[place] 325-5 MG] 1 tab PO ONETIME ONE
[2018-09-04] MEDS ORDERED: Acetaminophen/HYDROcodone 325-5 MG Tab PO ONE (00:26)
== END 2018-09-04 00:42 | disposition home or self-care (01) ==
LOC: JP.ED 23:53
DX: M79.622 Pain in left upper arm (principal); I10 Essential (primary) hypertension; I25.2 Old myocardial infarction; M19.90 Unspecified osteoarthritis, unspecified site; D64.9 Anemia, unspecified; E66.9 Obesity, unspecified; F17.210 Nicotine dependence, cigarettes, uncomplicated; Z98.84 Bariatric surgery status; Z79.899 Other long term (current) drug therapy; Z95.5 Presence of coronary angioplasty implant and graft; Z90.49 Acquired absence of other specified parts of digestive tract
CPT/HCPCS: 93005; 99284; A9270; 93010; 99283

== ENCOUNTER 2019-07-27 03:03 | Emergency (ER) | payer MEDICARE, MEDICAID ==
--- NOTE | 2019-07-27 03:25 | EDM.PDOC ---
ED HPI GENERAL MEDICAL PROBLEM - General Chief Complaint: Lower Extremity Injury/Pain Stated Complaint: ROLLED LEFT ANKLE Time Seen by Provider: 07/27/19 03:10 Source of Information: Reports: Patient History Limitations: Reports: No Limitations - History of Present Illness INITIAL COMMENTS - FREE TEXT/NARRATIVE: 43-year-old male rolled his foot earlier tonight. Tonight he was having difficulty sleeping because it hurts so bad. He has wrapped up and is able to walk but he has to limp pretty significantly. The pain is fairly localized to the lateral aspect of his foot. No other injury. Onset: Sudden Duration: Hour(s): (6 hours ago) Location: Reports: Lower Extremity, Left Associated Symptoms: Reports: No Other Symptoms Left Ankle Pain Score (Numeric/FACES): 6 - Related Data Allergies Allergy/AdvReac Type Severity Reaction Status Date / Time No Known Allergies Allergy Verified 07/27/19 03:15 Home Meds: Home Meds Gabapentin 800 mg PO BEDTIME 08/08/13 [History] Losartan [Cozaar] 50 mg PO DAILY 08/08/13 [History] Clopidogrel Bisulfate [Clopidogrel] 75 mg PO DAILY 08/21/14 [History] Spironolactone [Aldactone] 12.5 mg PO DAILY 08/21/14 [History] atorvaSTATin [Lipitor] 40 mg PO BEDTIME 08/21/14 [History] Metoprolol Succinate [Toprol XL] 100 mg PO DAILY 01/03/15 [History] Calcium Carb/Vitamin D3/Vit K1 [Calcium + Vit D & K Chew] 1 tab PO BID 04/05/15 [History] Vitamin B Complex/Folic Acid [Sm Vitamin B Complex Tablet] 1 tab PO DAILY [History] Iron,Carbonyl/Ascorbic Acid [Iron 100-Vitamin C Tablet] 1 each PO DAILY [History] Cyanocobalamin (Vitamin B-12) [Vitamin B-12] 1,000 mcg PO DAILY 08/09/16 [ History] Pantoprazole [ProTONIX] 40 mg PO DAILY 11/05/16 [History] Sacubitril/Valsartan [Entresto 49 mg-51 mg Tablet] 2 tab PO BID 11/13/16 [ History] Suvorexant [Belsomra] 10 mg PO BEDTIME 05/13/20 [History] Past Medical History HEENT History: Reports: Impaired Vision Cardiovascular History: Reports: Automatic Implantable Cardioverter Defibrillators, Heart Failure, High Cholesterol, Hypertension, [place], Stents Other Cardiovascular History: has defibrilator Respiratory History: Reports: Sleep Apnea, Other (See Below) Other Respiratory History: has not had issues with sleep apnea since gastric bypass surgery Gastrointestinal History: Reports: GI Bleed, Other (See Below) Other Gastrointestinal History: stomache ulcer Musculoskeletal History: Reports: Arthritis, Fracture, Other (See Below) Other Musculoskeletal History: right knee pain, right knee fracture, right ankle fracture, wrist fracture Neurological History: Reports: Concussion, Migraines, Other (See Below) Other Neuro History: brain encephalitis Psychiatric History: Reports: Depression, Suicide Attempt Endocrine/Metabolic History: Reports: Obesity/BMI 30+ Hematologic History: Reports: Anemia, B12 Deficiency Other Hematologic History: essential thrombocythemia Dermatologic History: Reports: Psoriasis Other Dermatologic History: psoriatic arthritis - Infectious Disease History Infectious Disease History: Reports: Other (See Below) Other Infectious Disease History: patient cannot remember - Past Surgical History Cardiovascular Surgical History: Reports: Coronary Artery Stent Respiratory Surgical History: Reports: Tracheostomy GI Surgical History: Reports: Bariatric Procedure, Cholecystectomy, Colonoscopy Musculoskeletal Surgical History: Reports: Knee Replacement, Other (See Below) Other Musculoskeletal Surgeries/Procedures:: right knee replacement 2016, left knee replacement 10/24/16 Social & Family History - Tobacco Use Smoking Status *Q: Current Every Day Smoker Years of Tobacco use: 30 Packs/Tins Daily: 1 - Caffeine Use Caffeine Use: Reports: Coffee Caffeine Use Comment: 1 cup coffee per day, one soda every 3 days Review of Systems - Review of Systems Review Of Systems: See Below Constitutional: Denies: Fever Respiratory: Denies: Shortness of Breath Cardiovascular: Denies: Chest Pain Skin: Reports: Bruising (Some slight bruising is developing over the lateral top of the foot) Neurological: Denies: Paresthesia Psychiatric: Reports: No Symptoms ED EXAM, GENERAL - Physical Exam Exam: See Below Exam Limited By: No Limitations General Appearance: Alert, No Apparent Distress Respiratory/Chest: No Respiratory Distress Extremities: Other (Exam is otherwise limited to the feet. There is no significant asymmetry. He is tender over the proximal aspect of the lateral fourth and fifth metatarsals with some slight bruising in the area.) Course - Vital Signs Last Recorded V/S: Last Vital Signs Temp 98.9 F 07/27/19 03:23 Pulse 92 07/27/19 03:23 Resp 18 07/27/19 03:23 BP 130/76 07/27/19 03:23 Pulse Ox 97 07/27/19 03:23 - Orders/Labs/Meds Meds: Medications Discontinued Medications Generic Name Dose Route Start Last Admin Trade Name Yecenia PRN Reason Stop Dose Admin Ibuprofen 600 mg 07/27/19 03:43 07/27/19 03:48 Motrin PO 07/27/19 03:44 600 mg ONETIME ONE Administration - Re-Assessments/Exams Free Text/Narrative Re-Assessment/Exam: 07/27/19 03:25 X-ray of the left foot was obtained. 07/27/19 03:44 X-ray was normal. Patient was given 600 mg of ibuprofen p.o., encouraged to continue wrapping his foot and increase activity as tolerated. Recheck in 5 to 7 days if not improving satisfactorily. Departure - Departure Time of Disposition: 03:49 Disposition: Home, Self-Care 01 Clinical Impression: Sprain of foot, left Qualifiers: Encounter type: initial encounter Qualified Code(s): S93.602A - Unspecified sprain of left foot, initial encounter - Discharge Information Instructions: Foot Sprain Referrals: Kurtis Ya MD [Primary Care Provider] - Forms: ED Department Discharge Care Plan Goals: Elevate when able, continue wrapping and increase activity as tolerated. Ibuprofen or Tylenol may be helpful. Recheck in 5 to 7 days if not improving satisfactorily. Sepsis Event Note - Evaluation Sepsis Screening Result: No Definite Risk - Focused Exam Date Exam was Performed: 07/27/19 Time Exam was Performed: 17:30
[2019-07-27 03:35] VITALS: BP 130/76; PULSE 92
[2019-07-27] MEDS ORDERED: Ibuprofen 600 MG Tab PO ONE (03:43)
--- NOTE | 2019-07-27 10:02 | CR ---
Foot Comp Min 3V Lt CLINICAL HISTORY: Lateral foot pain, injury FINDINGS: There is no acute fracture or dislocation within the foot. No destructive changes are present. There is some mild osteophytic change in the interphalangeal joints with some mild hammertoe deformity. There is mild deformity at the base of the second proximal phalanx which may be from old injury IMPRESSION: No acute bony process.
== END 2019-07-27 03:49 | disposition home or self-care (01) ==
LOC: JP.ED 03:03
DX: S93.602A Unspecified sprain of left foot, initial encounter (principal); E78.00 Pure hypercholesterolemia, unspecified; I11.0 Hypertensive heart disease with heart failure; I50.9 Heart failure, unspecified; I25.2 Old myocardial infarction; E66.9 Obesity, unspecified; Z68.37 Body mass index [BMI] 37.0-37.9, adult; Z79.02 Long term (current) use of antithrombotics/antiplatelets; Z79.899 Other long term (current) drug therapy; X50.9XXA Other and unspecified overexertion or strenuous movements or postures, initial encounter
CPT/HCPCS: 73630-26-LT; 73630-LT; 99282; 99283-25; A9270-GY

== ENCOUNTER 2019-10-31 22:07 | Emergency (ER) | payer MEDICARE, MEDICAID ==
[2019-10-31] MEDS ORDERED: Diphtheria,Pertussis(Acell),Tetanus Vaccine 0.5 ML SDV IM ONE (22:23)
[2019-10-31 22:26] VITALS: BP 137/79; PULSE 86
--- NOTE | 2019-10-31 22:36 | EDM.PDOC ---
ED HPI GENERAL MEDICAL PROBLEM - General Chief Complaint: Laceration Stated Complaint: PUNCTURED LT FOOT Time Seen by Provider: 10/31/19 22:15 Source of Information: Reports: Patient History Limitations: Reports: No Limitations - History of Present Illness INITIAL COMMENTS - FREE TEXT/NARRATIVE: 44-year-old male was using an electric drill when it slipped out of his hand and fell onto the top of his foot puncturing a wound into the top of his left foot. This happened within the last hour but he continues to bleed so he wanted it checked. Some pain with walking but not significant. Onset: Sudden Duration: Hour(s): (About 1 hour ago) Location: Reports: Lower Extremity, Left Worsens with: Reports: Other (Weightbearing and walking causes some increased pain) Associated Symptoms: Reports: No Other Symptoms Left Foot Pain Score (Numeric/FACES): 4 - Related Data Allergies Allergy/AdvReac Type Severity Reaction Status Date / Time No Known Allergies Allergy Verified 10/31/19 22:18 Home Meds: Home Meds Gabapentin 800 mg PO BEDTIME 08/08/13 [History] Losartan [Cozaar] 50 mg PO DAILY 08/08/13 [History] Clopidogrel Bisulfate [Clopidogrel] 75 mg PO DAILY 08/21/14 [History] Spironolactone [Aldactone] 12.5 mg PO DAILY 08/21/14 [History] atorvaSTATin [Lipitor] 40 mg PO BEDTIME 08/21/14 [History] Metoprolol Succinate [Toprol XL] 100 mg PO DAILY 01/03/15 [History] Calcium Carb/Vitamin D3/Vit K1 [Calcium + Vit D & K Chew] 1 tab PO BID 04/05/15 [History] Vitamin B Complex/Folic Acid [Sm Vitamin B Complex Tablet] 1 tab PO DAILY 04/05/15 [History] Iron,Carbonyl/Ascorbic Acid [Iron 100-Vitamin C Tablet] 1 each PO DAILY 10/25/15 [History] Cyanocobalamin (Vitamin B-12) [Vitamin B-12] 1,000 mcg PO DAILY 08/09/16 [History] Pantoprazole [ProTONIX] 40 mg PO DAILY 11/05/16 [History] Sacubitril/Valsartan [Entresto 49 mg-51 mg Tablet] 2 tab PO BID 11/13/16 [History] Suvorexant [Belsomra] 10 mg PO BEDTIME 07/27/19 [History] Eszopiclone [Lunesta] 3 mg PO BEDTIME 10/31/19 [History] Past Medical History HEENT History: Reports: Impaired Vision Cardiovascular History: Reports: Automatic Implantable Cardioverter Defibrillators, Heart Failure, High Cholesterol, Hypertension, [place], Stents Other Cardiovascular History: has defibrilator Respiratory History: Reports: Sleep Apnea, Other (See Below) Other Respiratory History: has not had issues with sleep apnea since gastric bypass surgery Gastrointestinal History: Reports: GI Bleed, Other (See Below) Other Gastrointestinal History: stomache ulcer Musculoskeletal History: Reports: Arthritis, Fracture, Other (See Below) Other Musculoskeletal History: right knee pain, right knee fracture, right ankle fracture, wrist fracture Neurological History: Reports: Concussion, Migraines, Other (See Below) Other Neuro History: brain encephalitis Psychiatric History: Reports: Depression, Suicide Attempt Endocrine/Metabolic History: Reports: Obesity/BMI 30+ Hematologic History: Reports: Anemia, B12 Deficiency Other Hematologic History: essential thrombocythemia Dermatologic History: Reports: Psoriasis Other Dermatologic History: psoriatic arthritis - Infectious Disease History Infectious Disease History: Reports: Other (See Below) Other Infectious Disease History: patient cannot remember - Past Surgical History Cardiovascular Surgical History: Reports: Coronary Artery Stent Respiratory Surgical History: Reports: Tracheostomy GI Surgical History: Reports: Bariatric Procedure, Cholecystectomy, Colonoscopy Musculoskeletal Surgical History: Reports: Knee Replacement, Other (See Below) Other Musculoskeletal Surgeries/Procedures:: right knee replacement 2016, left knee replacement 10/24/16 Social & Family History - Tobacco Use Smoking Status *Q: Current Every Day Smoker Years of Tobacco use: 28 Packs/Tins Daily: 1 - Caffeine Use Caffeine Use: Reports: Coffee Caffeine Use Comment: 1 cup coffee per day, one soda every 3 days - Recreational Drug Use Recreational Drug Use: No ED ROS GENERAL - Review of Systems Review Of Systems: See Below Constitutional: Denies: Fever, Chills Respiratory: Denies: Shortness of Breath Cardiovascular: Denies: Chest Pain GI/Abdominal: Denies: Nausea, Vomiting Neurological: Denies: Paresthesia Psychiatric: Reports: No Symptoms ED EXAM, SKIN/RASH Exam: See Below Exam Limited By: No Limitations General Appearance: Alert, No Apparent Distress Head: Atraumatic Respiratory/Chest: No Respiratory Distress Extremities: Other (On the top of the left foot a few centimeters from the MP joints between the second and third metatarsal is a small puncture wound, it is not actively bleeding at this time.) Neurological: Alert, Oriented Psychiatric: Normal Affect, Normal Mood Course - Vital Signs Last Recorded V/S: Last Vital Signs Temp 97.5 F 10/31/19 22:25 Pulse 86 10/31/19 22:25 Resp 18 10/31/19 22:25 BP 137/79 10/31/19 22:25 Pulse Ox 97 10/31/19 22:25 - Orders/Labs/Meds Meds: Medications Discontinued Medications Generic Name Dose Route Start Last Admin Trade Name Freq PRN Reason Stop Dose Admin Diphtheria/Tetanus/Acell Pertussis 0.5 ml 10/31/19 22:23 10/31/19 22:28 Adacel IM 10/31/19 22:24 0.5 ml .ONCE ONE Administration - Re-Assessments/Exams Free Text/Narrative Re-Assessment/Exam: 10/31/19 22:39 Informed the patient that one suture would help control bleeding but it was not necessary and he did not want to have a suture unless it was necessary. He was due for a tetanus booster so a Tdap was given. A wraparound pressure dressing was applied and he will watch for infection and increase activity as tolerated. Departure - Departure Time of Disposition: 22:44 Disposition: Home, Self-Care 01 Clinical Impression: Puncture wound of foot Qualifiers: Encounter type: initial encounter Laterality: right Qualified Code(s): S91.331A - Puncture wound without foreign body, right foot, initial encounter - Discharge Information Instructions: Puncture Wound, [id number] Referrals: Kurtis Ya MD [Primary Care Provider] - Forms: ED Department Discharge Care Plan Goals: Keep wound covered and clean while healing, recheck if concerns of infection or not healing satisfactorily. Persistent pressure for the first 12 hours will be helpful. Ibuprofen or naproxen will also work well for pain. Sepsis Event Note (ED) - Evaluation Sepsis Screening Result: No Definite Risk - Focused Exam Vital Signs: Vital Signs Temp Pulse Resp BP Pulse Ox 10/31/19 22:25 97.5 F 86 18 137/79 97
== END 2019-10-31 22:44 | disposition home or self-care (01) ==
LOC: JP.ED 22:07
DX: S91.332A Puncture wound without foreign body, left foot, initial encounter (principal); I11.0 Hypertensive heart disease with heart failure; I50.9 Heart failure, unspecified; I25.2 Old myocardial infarction; F17.210 Nicotine dependence, cigarettes, uncomplicated; E66.9 Obesity, unspecified; Z68.36 Body mass index [BMI] 36.0-36.9, adult; Z95.5 Presence of coronary angioplasty implant and graft; Z79.02 Long term (current) use of antithrombotics/antiplatelets; Z79.899 Other long term (current) drug therapy; Z23 Encounter for immunization; W26.8XXA Contact with other sharp object(s), not elsewhere classified, initial encounter
CPT/HCPCS: 90471; 90715; 99282; 99283

== ENCOUNTER 2020-02-19 03:58 | Emergency (ER) | payer MEDICARE, MEDICAID ==
[2020-02-19 04:22] VITALS: BP 113/68; PULSE 87
[2020-02-19] MEDS ORDERED: Sodium Chloride 0.9% 10 ML Syringe FLUSH PRN (04:34)
[2020-02-19] MEDS ORDERED: Loperamide 2 MG Cap PO ONE (04:35)
[2020-02-19] MEDS ORDERED: Hyoscyamine 0.125 MG Tab.SL SL ONE (04:38)
--- NOTE | 2020-02-19 04:41 | EDM.PDOC ---
ED HPI GENERAL MEDICAL PROBLEM - General Chief Complaint: Gastrointestinal Problem Stated Complaint: ABD PAIN Time Seen by Provider: 02/19/20 04:30 Source of Information: Reports: Patient, RN Notes Reviewed History Limitations: Reports: No Limitations - History of Present Illness INITIAL COMMENTS - FREE TEXT/NARRATIVE: 44-year-old gentleman presents emergency department today with complaint of abdominal cramping and diarrhea he states he has had this for about 3 hours he is the only one that is ill at the household does have a history of gastric bypass as well Abdomen Pain Score (Numeric/FACES): 8 - Related Data Allergies Allergy/AdvReac Type Severity Reaction Status Date / Time No Known Allergies Allergy Verified 02/19/20 04:09 Home Meds: Home Meds Gabapentin 600 mg PO BEDTIME 08/08/13 [History] Losartan [Cozaar] 50 mg PO DAILY 08/08/13 [History] Clopidogrel Bisulfate [Clopidogrel] 75 mg PO DAILY 08/21/14 [History] Spironolactone [Aldactone] 12.5 mg PO DAILY 08/21/14 [History] atorvaSTATin [Lipitor] 40 mg PO BEDTIME 08/21/14 [History] Metoprolol Succinate [Toprol XL] 100 mg PO DAILY 01/03/15 [History] Calcium Carb/Vitamin D3/Vit K1 [Calcium + Vit D & K Chew] 1 tab PO BID 04/05/15 [History] Vitamin B Complex/Folic Acid [Sm Vitamin B Complex Tablet] 1 tab PO DAILY 04/05/15 [History] Iron,Carbonyl/Ascorbic Acid [Iron 100-Vitamin C Tablet] 1 each PO DAILY 10/25/15 [History] Cyanocobalamin (Vitamin B-12) [Vitamin B-12] 1,000 mcg PO DAILY 08/09/16 [Hist ory] Pantoprazole [ProTONIX] 40 mg PO DAILY 11/05/16 [History] Sacubitril/Valsartan [Entresto 49 mg-51 mg Tablet] 2 tab PO BID 11/13/16 [History] Eszopiclone [Lunesta] 3 mg PO BEDTIME 10/31/19 [History] Secukinumab [Cosentyx Syringe] 1 dose SQ ASDIRECTED 02/19/20 [History] Past Medical History HEENT History: Reports: Impaired Vision Cardiovascular History: Reports: Automatic Implantable Cardioverter Defibrillators, CAD, Heart Failure, High Cholesterol, Hypertension, [place], Stents Other Cardiovascular History: has defibrilator Respiratory History: Reports: Sleep Apnea, Other (See Below) Other Respiratory History: has not had issues with sleep apnea since gastric bypass surgery Gastrointestinal History: Reports: GI Bleed, Other (See Below) Other Gastrointestinal History: stomache ulcer Musculoskeletal History: Reports: Arthritis, Fracture, Other (See Below) Other Musculoskeletal History: right knee pain, right knee fracture, right ankle fracture, wrist fracture Neurological History: Reports: Concussion, Migraines, Other (See Below) Other Neuro History: brain encephalitis Psychiatric History: Reports: Depression, Suicide Attempt Endocrine/Metabolic History: Reports: Obesity/BMI 30+ Hematologic History: Reports: Anemia, B12 Deficiency Other Hematologic History: essential thrombocythemia Dermatologic History: Reports: Psoriasis Other Dermatologic History: psoriatic arthritis - Infectious Disease History Infectious Disease History: Reports: Chicken Pox Other Infectious Disease History: patient cannot remember - Past Surgical History Cardiovascular Surgical History: Reports: Coronary Artery Stent Other Cardiovascular Surgeries/Procedures: x3 Respiratory Surgical History: Reports: Tracheostomy Other Respiratory Surgeries/Procedures: tracheostomy for RNY has been D/C GI Surgical History: Reports: Bariatric Procedure, Cholecystectomy, Colonoscopy Musculoskeletal Surgical History: Reports: Knee Replacement, Other (See Below) Other Musculoskeletal Surgeries/Procedures:: right knee replacement 2016, left knee replacement 10/24/16 Social & Family History - Tobacco Use Tobacco Use Status *Q: Current Every Day Tobacco User Years of Tobacco use: 30 Packs/Tins Daily: 1 Used Tobacco, but Quit: No Second Hand Smoke Exposure: Yes - Caffeine Use Caffeine Use: Reports: Coffee Caffeine Use Comment: 1 cup coffee per day, one soda every 3 days - Recreational Drug Use Recreational Drug Use: No ED ROS GENERAL - Review of Systems Review Of Systems: See Below Constitutional: Denies: Fever, Chills HEENT: Reports: No Symptoms Respiratory: Reports: No Symptoms Cardiovascular: Reports: No Symptoms GI/Abdominal: Reports: Abdominal Pain, Diarrhea. Denies: Nausea, Vomiting : Reports: No Symptoms ED EXAM, GI/ABD - Physical Exam Exam: See Below Exam Limited By: No Limitations General Appearance: Alert, WD/WN, No Apparent Distress Respiratory/Chest: No Respiratory Distress GI/Abdominal Exam: Normal Bowel Sounds, Soft, Non-Tender, No Distention Course - Vital Signs Last Recorded V/S: Last Vital Signs Temp 96.4 F L 02/19/20 04:21 Pulse 87 02/19/20 04:21 Resp 16 02/19/20 04:21 BP 113/68 02/19/20 04:21 Pulse Ox 96 02/19/20 04:21 - Orders/Labs/Meds Orders: Active Orders 24 hr Category Date Time Status Peripheral IV Care [RC] . DIRECTED Care 02/19/20 04:35 Active Lactated Ringers [Ringers, Lactated] 1,000 ml Med 02/19/20 04:45 Active IV ASDIRECTED Sodium Chloride 0.9% [Saline Flush] Med 02/19/20 04:34 Active 10 ml FLUSH ASDIRECTED PRN Peripheral IV Insertion Adult [OM.PC] Urgent Oth 02/19/20 04:34 Ordered Medication Orders Lactated Ringer's (Ringers, Lactated) 1,000 mls @ 999 mls/hr IV ASDIRECTED ARBEN Last Admin: 02/19/20 05:00 Dose: 999 mls/hr Documented by: [facility] Sodium Chloride (Saline Flush) 10 ml FLUSH ASDIRECTED PRN PRN Reason: Keep Vein Open Labs: Laboratory Tests 02/19/20 02/19/20 02/19/20 Range/Units 05:01 05:01 05:01 WBC 8.9 (4.5-11.0) K/uL RBC 4.67 (4.30-5.90) M/uL Hgb 13.9 (12.0-15.0) g/dL Hct 42.2 (40.0-54.0) % MCV 90 (80-98) fL MCH 30 (27-31) pg MCHC 33 (32-36) % Plt Count 208 (150-400) K/uL Neut % (Auto) 65 (36-66) % Lymph % (Auto) 25 (24-44) % Faulkner % (Auto) 7 H (2-6) % Eos % (Auto) 3 (2-4) % Baso % (Auto) 0 (0-1) % Sodium 141 (140-148) mmol/L Potassium 4.0 (3.6-5.2) mmol/L Chloride 105 (100-108) mmol/L Carbon Dioxide 26 (21-32) mmol/L Anion Gap 10.1 (5.0-14.0) mmol/L BUN 16 (7-18) mg/dL Creatinine 0.8 (0.8-1.3) mg/dL Est Cr Clr Drug Dosing 111.63 mL/min Estimated GFR (MDRD) > 60 (>60) Glucose 104 (74-106) mg/dL Lactic Acid 1.1 (0.4-2.0) mmol/L Calcium 8.5 (8.5-10.1) mg/dL Meds: Medications Generic Name Dose Route Start Last Admin Trade Name Freq PRN Reason Stop Dose Admin Lactated Ringer's 1,000 mls @ 999 mls/hr 02/19/20 04:45 02/19/20 05:00 Ringers, Lactated IV 999 mls/hr ASDIRECTED ARBEN Administration Sodium Chloride 10 ml 02/19/20 04:34 Saline Flush FLUSH ASDIRECTED PRN Keep Vein Open Discontinued Medications Generic Name Dose Route Start Last Admin Trade Name Freq PRN Reason Stop Dose Admin Hyoscyamine 0.125 mg 02/19/20 04:38 02/19/20 04:44 Hyomax-Sl SL 02/19/20 04:39 0.125 mg ONETIME ONE Administration Loperamide HCl 2 mg 02/19/20 04:35 02/19/20 04:43 Imodium PO 02/19/20 04:36 2 mg ONETIME ONE Administration Departure - Departure Time of Disposition: 06:15 Disposition: Home, Self-Care 01 Condition: Fair Clinical Impression: Acute diarrhea - Discharge Information Instructions: Diarrhea, Adult Referrals: Kurtis Ya MD [Primary Care Provider] - Forms: ED Department Discharge Additional Instructions: Continue to use Imodium [id number], please followup with your primary care provider in 3-5 days if not better, please call return to the emergency department with worsening of symptoms. Sepsis Event Note (ED) - Evaluation Sepsis Screening Result: No Definite Risk - Focused Exam Vital Signs: Vital Signs Temp Pulse Resp BP Pulse Ox 02/19/20 04:21 96.4 F L 87 16 113/68 96 - My Orders Last 24 Hours: My Active Orders 02/19/20 04:34 Sodium Chloride 0.9% [Saline Flush] 10 ml FLUSH ASDIRECTED PRN Peripheral IV Insertion Adult [OM.PC] Urgent 02/19/20 04:35 Peripheral IV Care [RC] . DIRECTED 02/19/20 04:45 Lactated Ringers [Ringers, Lactated] 1,000 ml IV ASDIRECTED - Assessment/Plan Last 24 Hours: My Active Orders 02/19/20 04:34 Sodium Chloride 0.9% [Saline Flush] 10 ml FLUSH ASDIRECTED PRN Peripheral IV Insertion Adult [OM.PC] Urgent 02/19/20 04:35 Peripheral IV Care [RC] . DIRECTED 02/19/20 04:45 Lactated Ringers [Ringers, Lactated] 1,000 ml IV ASDIRECTED Plan: Assessment Acuity = acute Site and laterality = diarrhea Etiology = probably viral Manifestations = none Location of injury = Home Lab values = CBC, BMP unremarkable Plan Good improvement combination Imodium and Anaspaz recommend using Imodium [id number] follow-up primary care 3 to 5 days if not better This note was dictated using [employer] voice recognition software please call with any questions on syntax or grammar.
[2020-02-19] MEDS ORDERED: Lactated Ringers 1,000 ML IV SCH (04:45)
== END 2020-02-19 06:26 | disposition home or self-care (01) ==
LOC: JP.ED 03:58
DX: R19.7 Diarrhea, unspecified (principal); R10.9 Unspecified abdominal pain; I11.0 Hypertensive heart disease with heart failure; I50.9 Heart failure, unspecified; I25.10 Atherosclerotic heart disease of native coronary artery without angina pectoris; I25.2 Old myocardial infarction; E78.00 Pure hypercholesterolemia, unspecified; F32.9 Major depressive disorder, single episode, unspecified; E66.9 Obesity, unspecified; F17.210 Nicotine dependence, cigarettes, uncomplicated; Z95.5 Presence of coronary angioplasty implant and graft; Z90.49 Acquired absence of other specified parts of digestive tract; Z79.02 Long term (current) use of antithrombotics/antiplatelets; Z79.899 Other long term (current) drug therapy
CPT/HCPCS: 36415; 80048; 83605; 85025; 99283; 99284; A9270-GY; J7120

== ENCOUNTER 2020-12-06 15:51 | Emergency (ER) | payer OTHER, MEDICARE, MEDICAID ==
[2020-12-06 16:17] VITALS: BP 124/72; PULSE 68
[2020-12-06] MEDS ORDERED: Ketorolac 30 MG/ML SDV IM ONE (16:30)
--- NOTE | 2020-12-06 16:51 | EDM.PDOC ---
ED HPI GENERAL MEDICAL PROBLEM - General Chief Complaint: Back Pain or Injury Stated Complaint: HEAD INJURY, BACK PAIN, R ARM CUT DUE TO FALL Time Seen by Provider: 12/06/20 16:30 Source of Information: Reports: Patient, Old Records, RN History Limitations: Reports: No Limitations - History of Present Illness INITIAL COMMENTS - FREE TEXT/NARRATIVE: 45 yo male was walking backwards on a carpeted surface and his heel caught the rug causing him to fall backwards. He struck his R buttocks and the back of his head in the fall. He did not lose consciousness or develop nausea. He does have a SHELBY. His neck pain is not any worse than usual and he does report low back pain. He has not taken anything for his sx's before arrival. He is on Plavix for coronary stents. He drove himself to the ER. Onset: Today, Sudden Onset Date: 12/06/20 Duration: Minutes:, Constant Location: Reports: Head, Back Quality: Reports: Ache Severity: Moderate Improves with: Reports: None Worsens with: Reports: Movement (back is worse with movement) Context: Reports: Trauma Associated Symptoms: Reports: Headaches Treatments DIGITAL COMMUNICATIONS MANAGER: Reports: Other (see below) (none) Back Pain Score (Numeric/FACES): 7 - Related Data Allergies Allergy/AdvReac Type Severity Reaction Status Date / Time No Known Allergies Allergy Verified 12/06/20 16:20 Home Meds: Home Meds Gabapentin 600 mg PO BEDTIME 08/08/13 [History] Losartan [Cozaar] 50 mg PO DAILY 08/08/13 [History] Clopidogrel Bisulfate [Clopidogrel] 75 mg PO DAILY 08/21/14 [History] Spironolactone [Aldactone] 12.5 mg PO DAILY 08/21/14 [History] atorvaSTATin [Lipitor] 40 mg PO BEDTIME 08/21/14 [History] Metoprolol Succinate [Toprol XL] 100 mg PO DAILY 01/03/15 [History] Calcium Carb/Vitamin D3/Vit K1 [Calcium + Vit D & K Chew] 1 tab PO BID 04/05/15 [History] Vitamin B Complex/Folic Acid [Sm Vitamin B Complex Tablet] 1 tab PO DAILY 04/05/15 [History] Iron,Carbonyl/Ascorbic Acid [Iron 100-Vitamin C Tablet] 1 each PO DAILY 10/25/15 [History] Cyanocobalamin (Vitamin B-12) [Vitamin B-12] 1,000 mcg PO DAILY 08/09/16 [History] Pantoprazole [ProTONIX] 40 mg PO DAILY 11/05/16 [History] Sacubitril/Valsartan [Entresto 49 mg-51 mg Tablet] 2 tab PO BID 11/13/16 [History] Eszopiclone [Lunesta] 3 mg PO BEDTIME 10/31/19 [History] Secukinumab [Cosentyx Syringe] 1 dose SQ ASDIRECTED 02/19/20 [History] Escitalopram [Lexapro] 10 mg PO DAILY 12/06/20 [History] Past Medical History HEENT History: Reports: Impaired Vision Cardiovascular History: Reports: Automatic Implantable Cardioverter Defibrillators, CAD, Heart Failure, High Cholesterol, Hypertension, [place], Stents Other Cardiovascular History: has defibrilator Respiratory History: Reports: Sleep Apnea, Other (See Below) Other Respiratory History: has not had issues with sleep apnea since gastric bypass surgery Gastrointestinal History: Reports: GI Bleed, Other (See Below) Other Gastrointestinal History: stomache ulcer Musculoskeletal History: Reports: Arthritis, Fracture, Other (See Below) Other Musculoskeletal History: right knee pain, right knee fracture, right ankle fracture, wrist fracture Neurological History: Reports: Concussion, Migraines, Other (See Below) Other Neuro History: brain encephalitis Psychiatric History: Reports: Depression, Suicide Attempt Endocrine/Metabolic History: Reports: Obesity/BMI 30+ Hematologic History: Reports: Anemia, B12 Deficiency Other Hematologic History: essential thrombocythemia Dermatologic History: Reports: Psoriasis Other Dermatologic History: psoriatic arthritis - Infectious Disease History Infectious Disease History: Reports: Chicken Pox, Novel Coronavirus Other Infectious Disease History: patient cannot remember - Past Surgical History Cardiovascular Surgical History: Reports: Coronary Artery Stent Other Cardiovascular Surgeries/Procedures: x3 Respiratory Surgical History: Reports: Tracheostomy Other Respiratory Surgeries/Procedures: tracheostomy for RNY has been D/C GI Surgical History: Reports: Bariatric Procedure, Cholecystectomy, Colonoscopy Musculoskeletal Surgical History: Reports: Knee Replacement, Other (See Below) Other Musculoskeletal Surgeries/Procedures:: right knee replacement 2016, left knee replacement 10/24/16 Social & Family History - Tobacco Use Tobacco Use Status *Q: Current Every Day Tobacco User Years of Tobacco use: 16 Packs/Tins Daily: 1 - Caffeine Use Caffeine Use: Reports: Coffee Caffeine Use Comment: 1 cup coffee per day, one soda every 3 days - Recreational Drug Use Recreational Drug Use: No ED ROS GENERAL - Review of Systems Review Of Systems: See Below Constitutional: Reports: No Symptoms HEENT: Reports: No Symptoms Respiratory: Reports: No Symptoms Cardiovascular: Reports: No Symptoms GI/Abdominal: Reports: No Symptoms. Denies: Nausea : Reports: No Symptoms Musculoskeletal: Reports: Back Pain (low) Skin: Reports: No Symptoms Neurological: Reports: Headache. Denies: Dizziness Psychiatric: Reports: No Symptoms ED EXAM,LOWER BACK PAIN/INJURY - Physical Exam Exam: See Below Exam Limited By: No Limitations General Appearance: Alert, WD/WN, No Apparent Distress Eye Exam: Bilateral Eye: EOMI, Normal Inspection, PERRL Ears: Normal External Exam, Normal Canal, Hearing Grossly Normal, Normal TMs Nose: Normal Inspection, No Blood. No: Clear Rhinorrhea Throat/Mouth: Normal Inspection, Normal Lips, Normal Voice, No Airway Compromise Head: Normocephalic, Other (scalp tenderness without associated swelling. ) Respiratory/Chest: No Respiratory Distress, Lungs Clear, Normal Breath Sounds, No Accessory Muscle Use Cardiovascular: Regular Rate, Rhythm Back Exam: Normal Inspection, Vertebral Tenderness (lumbar spine and R post sacral areas). No: CVA Tenderness (R), CVA Tenderness (L) Extremities: Normal Inspection, Normal Range of Motion, Non-Tender, No Pedal Edema Neurological: Alert, Normal Mood/Affect, CN II-XII Intact, No Motor/Sensory Deficits, Oriented x 3 Psychiatric: Normal Affect, Normal Mood Skin Exam: Warm, Dry, Intact, Normal Color, No Rash Course - Vital Signs Last Recorded V/S: Last Vital Signs Temp 36.2 C 12/06/20 16:19 Pulse 68 12/06/20 16:19 Resp 14 12/06/20 16:19 BP 124/72 12/06/20 16:19 Pulse Ox 96 12/06/20 16:19 - Orders/Labs/Meds Meds: Medications Discontinued Medications Generic Name Dose Route Start Last Admin Trade Name Yecenia PRN Reason Stop Dose Admin Ketorolac Tromethamine 30 mg 12/06/20 16:30 12/06/20 16:35 Ketorolac 30 Mg/Ml Sdv IM 12/06/20 16:31 30 mg ONETIME ONE Administration - Re-Assessments/Exams Free Text/Narrative Re-Assessment/Exam: 12/06/20 16:[address] head and lumbar spine X-rays, he preferred to pass on X- rays at this time. Departure - Departure Time of Disposition: 17:00 Disposition: Home, Self-Care 01 Condition: Fair Clinical Impression: Lumbar strain Qualifiers: Encounter type: initial encounter Qualified Code(s): S39.012A - Strain of muscle, fascia and tendon of lower back, initial encounter Mild concussion Qualifiers: Encounter type: initial encounter Loss of consciousness presence/duration: without LOC Qualified Code(s): S06.0X0A - Concussion without loss of consciousne ss, initial encounter - Discharge Information *PRESCRIPTION DRUG MONITORING PROGRAM REVIEWED*: Not Applicable *COPY OF PRESCRIPTION DRUG MONITORING REPORT IN PATIENT MAMIE: Not Applicable Instructions: Concussion, Adult, [id number] Referrals: Kurtis Ya MD [Primary Care Provider] - Forms: ED Department Discharge Additional Instructions: Take acetaminophen up to 1000 mg every 6 hrs for pain relief as needed. You may also take ibuprofen up to 600 mg every 6 hrs with food for added relief starting after bedtime tonight. Rest lying down for your concussion and avoid any exertion until your SHELBY is completely gone and you are not requiring any medications. Return if worse. Sepsis Event Note (ED) - Focused Exam Vital Signs: Vital Signs Temp Pulse Resp BP Pulse Ox 12/06/20 16:19 36.2 C 68 14 124/72 96 12/06/20 16:15 36.2 C 68 14 124/72 96
== END 2020-12-06 17:02 | disposition home or self-care (01) ==
LOC: JP.ED 15:51
DX: S06.0X0A Concussion without loss of consciousness, initial encounter (principal); S39.012A Strain of muscle, fascia and tendon of lower back, initial encounter; I25.10 Atherosclerotic heart disease of native coronary artery without angina pectoris; I11.0 Hypertensive heart disease with heart failure; I50.9 Heart failure, unspecified; I25.2 Old myocardial infarction; E66.9 Obesity, unspecified; Z68.37 Body mass index [BMI] 37.0-37.9, adult; Z79.02 Long term (current) use of antithrombotics/antiplatelets; Z79.899 Other long term (current) drug therapy; Z95.5 Presence of coronary angioplasty implant and graft; Z95.810 Presence of automatic (implantable) cardiac defibrillator; Z72.0 Tobacco use; W18.39XA Other fall on same level, initial encounter; Y93.01 Activity, walking, marching and hiking
CPT/HCPCS: 96372; 99284; J1885

== ENCOUNTER 2021-08-10 22:03 | Emergency (ER) | payer MEDICARE, MEDICAID ==
[2021-08-10 22:19] VITALS: BP 104/70; PULSE 114
[2021-08-10 23:15] LABS: CORONAVIRUS COVID-19 NAA NEGATIVE (NEGATIVE)
== END 2021-08-10 23:28 | disposition home or self-care (01) ==
LOC: JP.ED 22:03
DX: M13.0 Polyarthritis, unspecified (principal); L40.50 Arthropathic psoriasis, unspecified; I11.0 Hypertensive heart disease with heart failure; I50.9 Heart failure, unspecified; I25.10 Atherosclerotic heart disease of native coronary artery without angina pectoris; I25.2 Old myocardial infarction; E78.00 Pure hypercholesterolemia, unspecified; E66.9 Obesity, unspecified; Z68.36 Body mass index [BMI] 36.0-36.9, adult; Z86.16 Personal history of COVID-19; Z20.822 Contact with and (suspected) exposure to COVID-19; Z90.49 Acquired absence of other specified parts of digestive tract; Z79.899 Other long term (current) drug therapy
CPT/HCPCS: 0241U; 36415; 80053; 81001; 85025; 85651; 86140; 86618; 86666; 86753; 99283

== ENCOUNTER 2022-04-09 01:20 | Emergency (ER) | payer MEDICARE, MEDICAID ==
[2022-04-09 01:43] VITALS: BP 126/84; PULSE 77
== END 2022-04-09 01:48 | disposition home or self-care (01) ==
LOC: JP.ED 01:20
DX: M79.81 Nontraumatic hematoma of soft tissue (principal); I25.10 Atherosclerotic heart disease of native coronary artery without angina pectoris; I11.0 Hypertensive heart disease with heart failure; I50.9 Heart failure, unspecified; E78.00 Pure hypercholesterolemia, unspecified; I25.2 Old myocardial infarction; E66.9 Obesity, unspecified; Z95.5 Presence of coronary angioplasty implant and graft; Z79.899 Other long term (current) drug therapy; Z86.16 Personal history of COVID-19; Z79.02 Long term (current) use of antithrombotics/antiplatelets; Z68.38 Body mass index [BMI] 38.0-38.9, adult
CPT/HCPCS: 99282; 99283

== ENCOUNTER 2023-05-13 22:52 | Emergency (ER) | payer MEDICARE, MEDICAID ==
[2023-05-13 23:04] VITALS: BP 126/76; PULSE 75
== END 2023-05-14 00:08 | disposition home or self-care (01) ==
LOC: JP.ED 22:52
DX: S92.522A Displaced fracture of middle phalanx of left lesser toe(s), initial encounter for closed fracture (principal); S92.512A Displaced fracture of proximal phalanx of left lesser toe(s), initial encounter for closed fracture; I25.10 Atherosclerotic heart disease of native coronary artery without angina pectoris; I11.0 Hypertensive heart disease with heart failure; I50.9 Heart failure, unspecified; I25.2 Old myocardial infarction; E66.9 Obesity, unspecified; Z86.16 Personal history of COVID-19; Z95.1 Presence of aortocoronary bypass graft; F17.210 Nicotine dependence, cigarettes, uncomplicated; Z79.02 Long term (current) use of antithrombotics/antiplatelets; Z79.899 Other long term (current) drug therapy; Z68.36 Body mass index [BMI] 36.0-36.9, adult; X58.XXXA Exposure to other specified factors, initial encounter
CPT/HCPCS: 73660-26-T1; 73660-T1; 99283